=== PATIENT | female | born 1960 | race Caucasian/White ===

== ENCOUNTER 2016-07-28 09:45 | Day surgery (SDC) | payer MEDICARE, BC ==
[2016-07-22 12:44] LABS: BASOPHILS ABSOLUTE 0.08 10/3/uL (0.0-0.16); EOSINOPHILS ABSOLUTE 0.24 10/3/uL (0.0-0.53); HEMATOCRIT 40.5 % (36.0-48.0); HEMOGLOBIN 13.4 g/dL (12.0-16.0); IMMATURE GRANULOCYTES 0.4 %; IMMATURE GRANULOCYTES ABSOLUTE 0.03 10/3/uL (0.0-0.11); LYMPHOCYTES 34.7 %; MEAN CORPUS HGB CONC 33.1 g/dL (32.0-36.0); MEAN CORPUSCULAR VOLUME 93.8 fL (80-100); MONOCYTES 6.4 %; MONOCYTES ABSOLUTE 0.52 10/3/uL (0.21-1.20); NEUTROPHILS 54.5 %; NEUTROPHILS ABSOLUTE 4.41 10/3/uL (2.02-8.40); PLATELET COUNT 331 10/3/uL (150-400); RBC DISTRIBUTION WIDTH 13.6 % (12.0-16.0); RED CELL COUNT 4.32 10/6/uL (4.0-5.6); WHITE BLOOD CELLS 8.1 10/3/uL (4.5-10.5)
[2016-07-22 12:47] LABS: MANUAL DIFF NO %
[2016-07-22 13:13] LABS: A/G RATIO 1.2 (0.7-1.9); ALBUMIN 3.5 G/DL (3.5-5.0); ALKALINE PHOSPHATASE 96 U/L (45-117); BUN (BLOOD UREA NITROGEN) 13 MG/DL (6-23); CALCIUM, SERUM 8.6 MG/DL (8.5-10.4); CHLORIDE, SERUM 105 MMOL/L (96-112); CO2 (CARBON DIOXIDE) 27 MMOL/L (24-34); CREATININE 0.49 MG/DL (0.55-1.02); GFR AFRICAN AMERICAN 128 ML/MIN (>=60); GFR NON AFRICAN AMERICAN 110 ML/MIN (>=60); GLUCOSE, SERUM 119 MG/DL (60-99); POTASSIUM, SERUM 3.9 MMOL/L (3.5-5.3); SGOT(AST) 13 U/L (5-40); SGPT(ALT) 17 U/L (5-65); SODIUM, SERUM 141 MMOL/L (135-148); TOTAL BILIRUBIN 0.2 MG/DL (0-1.2); TOTAL PROTEIN 6.5 G/DL (6.0-8.5)
--- NOTE | ~2016-07-28 | OP ---
Record Of Operation [facility] [address] [place]. [address] NAME: TEE HERNÁNDEZ : 64 STATUS : REG [facility] PAT#: [id number] AGE: 56 ADM/REG DATE : 07/28/16 MR#: [id number] REPORT SERV DATE: 07/28/16 DICTATED BY: TERRY YOON III DATE: 07/28/16 REPORT STATUS : Draft TRANSCRIBED BY: MODL DATE: 07/28/16 DATE OF PROCEDURE: 07/28/2016 PREOPERATIVE DIAGNOSES: Symptomatic cholelithiasis, chronic cholecystitis, and chronically incarcerated umbilical hernia. POSTOPERATIVE DIAGNOSES: Symptomatic cholelithiasis, chronic cholecystitis, and chronically incarcerated umbilical hernia. PROCEDURE: Laparoscopic cholecystectomy with repair of chronic incarcerated umbilical hernia. SURGEON: Terry Yoon M.D. ANESTHESIA: General with intubation. COMPLICATIONS: None. ESTIMATED BLOOD LOSS: Less than 30 mL. SPECIMENS: Gallbladder. DRAINS: None. LAP AND SPONGE COUNT: Correct x3. BRIEF HISTORY: This 56-year-old female presented with evidence for symptomatic cholelithiasis and cholecystitis associated with a symptomatic chronically incarcerated umbilical hernia. It was felt that laparoscopic cholecystectomy, possible laparotomy, with repair of the umbilical hernia was indicated. These procedures, the risks, benefits, and alternatives, including not limited to the risk for bleeding, infection, common bile duct injury, bile leak, retained common bile duct stone, enterotomy, or injury to any abdominal structure, the definite possible need for laparotomy, the possible persistence of her symptoms unrelieved by surgery, possibility of postoperative diarrhea or incisional hernia, possible need for laparotomy, possible recurrence of her umbilical hernia and unforeseen complications including deep venous thrombosis, pulmonary embolus, myocardial infarction, stroke, pneumonia, and , were fully and completely explained to the patient and her family at length prior to surgery. The fact that this was a major operation with risk for major morbidity mortality, no guarantee with relief of her symptoms were explained to them. The expected length of recovery of both open and laparoscopic procedures was explained. The patient and family had questions, which were answered. They fully understood the risks and agreed to surgery as planned. DESCRIPTION OF PROCEDURE: After being properly identified and after discussing risks of surgery with the patient and her family again in the preoperative area, the patient was taken to the operating room and placed in the supine position on the operating room table. Record Of Operation [facility] [address] [place]. [address] NAME: TEE HERNÁNDEZ : 64 STATUS : REG [facility] PAT#: [id number] AGE: 56 ADM/REG DATE : 07/28/16 MR#: [id number] REPORT SERV DATE: 07/28/16 DICTATED BY: TERRY YOON III DATE: 07/28/16 REPORT STATUS : Draft TRANSCRIBED BY: HONEY DATE: 07/28/16 General anesthesia was administered. She was intubated without difficulty. The abdomen was prepped and draped sterilely in the usual fashion. After an appropriate "time-out" per [facility] standards, a small transverse incision was made just below the umbilicus. The skin and fascia on either side of this were elevated with towel clips. A Veress needle was placed through the incision into the peritoneal cavity. Correct position of the needle in peritoneal cavity was confirmed by the hanging drop test. The abdominal cavity was then insufflated to about 13 mmHg with carbon dioxide. Correct position of the air in the peritoneal cavity was confirmed by palpation. The Veress needle was removed and replaced with a 10 mm trocar. The laparoscope was placed through this. The patient was placed in the reverse Trendelenburg position and to her left. A second 10 mm trocar was placed just below the xiphoid process, to the right of falciform ligament, under direct vision with the laparoscope. Two 5 mm trocars were placed along the right subcostal margin, one in the midaxillary line and the other in the midclavicular line. These were also placed under direct vision with the laparoscope. Two 5 mm trocars were placed along the right subcostal margin, one in the midclavicular line and the other in the mid axillary line, under direct vision with the laparoscope. The upper abdomen was inspected. The gallbladder appeared to be chronically diseased. The gallbladder rivera were thickened, inflamed, and there were adhesions between the gallbladder and omentum consistent with cholecystitis. The liver slightly enlarged consistent with fatty infiltration, but no discreet lesions were seen. The remainder of the upper abdomen was otherwise unremarkable as far as we could determine through the laparoscope. The appropriate instruments were placed through the trocars. Using sharp dissection, the adhesions between the gallbladder and omentum were carefully divided. The gallbladder was then grasped and the infundibulum of the gallbladder was retracted laterally and inferiorly. Using sharp dissection, the cystic duct was carefully and meticulously defined proximally and distally. The fibrous and fatty tissue between these structures was divided so as to clearly identify the triangle of [place]ot and critical view of safety. The lower portion of the gallbladder dissected away from the liver plates so as to clearly identify the critical angle. Once these structures were clearly defined, the cystic duct was clipped with two clips, one on the common bile duct side and one on the gallbladder side, all placed as close to the gallbladder as possible, taking care not encroach upon or injure the common bile duct in any way. The cystic duct was then divided between these clips as close to the gallbladder as possible. We elected not to perform a cholangiogram because there was no preoperative or intraoperative evidence for biliary dilatation because the patient's preoperative liver enzymes were normal and because her biliary anatomy was clearly defined. The cystic artery was then similarly clipped and divided as close to the gallbladder as possible. Using the spatula and the cautery, gallbladder was carefully dissected from the liver bed. This went very well. Before the gallbladder was completely removed, the gallbladder bed and portal areas were irrigated numerous times with saline, and the saline was aspirated dry. This process was repeated several times until hemostasis was meticulously and thoroughly assured in all areas. It was also assured that the clips in the portal area were in good position and that there was no extravasation of bile from any accessory bile duct. Once this was assured, gallbladder was completely dissected away from the liver and placed in an Endopouch. The liver bed was again elevated, irrigated, inspected for meticulous and thorough hemostasis and for absence of any biliary extravasation and to be certain that the clips were in good position. Once this was Record Of Operation [address] [place]. [address] NAME: TEE HERNÁNDEZ : 64 STATUS : REG [facility]#: [id number] AGE: 56 ADM/REG DATE : 07/28/16 MR#: [id number] REPORT SERV DATE: 07/28/16 DICTATED BY: TERRY YOON III DATE: 07/28/16 REPORT STATUS : Draft TRANSCRIBED BY: MODMontez DATE: 07/28/16 assured, the gallbladder and the Endopouch were brought out through the infraumbilical trocar site after placing the laparoscope through the subxiphoid trocar. The lateral two trocars were removed and these three lower trocar sites were inspected on the underside for hemostasis with the laparoscope. Once this was assured, subxiphoid trocar was removed under direct vision with the laparoscope to assure hemostasis. The air was removed from the peritoneal cavity. We then turned our attention to the umbilical hernia. This was a hernia, which had some omentum chronically incarcerated within it. Using sharp dissection, the navel was raised superiorly. The fascial defect was identified. The omentum was carefully reduced back into the abdominal cavity. Using sharp dissection, the skin and subcutaneous tissue around the defect anteriorly was fully mobilized. The underside of the defect was inspected to be certain that there was no bowel beneath this. Hemostasis was assured. The defect was about 1 cm in size. The fascial edges were then reapproximated with interrupted 0 Prolene sutures. The fascia came together nicely with no tension, and it was felt that mesh was not required. Hemostasis was assured. The subcutaneous tissue was closed with running 3-0 chromic suture, the skin was closed with running subcuticular 4-0 Monocryl stitch. The skin incisions were all closed with running subcuticular 4-0 Monocryl stitches. They were injected with 0.5% Marcaine. Dressings were applied. Anesthesia was reversed. The patient was taken to the recovery room in stable condition. She tolerated the procedure well. Her family was informed of results of surgery. The patient will be discharged when stable and comfortable and able to void and ambulate. Her family was advised that she should remain on liquid diet today and advance this as tolerated to a regular diet tomorrow, that she should keep wounds clean and dry for 48 hours, that she should not drive for at least three to four days after surgery or while using narcotics, and that she should resume her usual medications. They are advised she should not perform any heavy lifting for five to six weeks. She has been asked to return in two weeks for followup or sooner if any nausea, vomiting, fever, chills, wound drainage, abdominal pain, weakness, or other problems prior to that time. She was given a prescription for Percocet 7.5 one t.i.d., #12, as needed for pain, which she was advised not to use while driving. MINNA/HONEY Terry Yoon III, M.D. / [id number] CC: Aly Loyola III, M.D.
--- NOTE | ~2016-07-28 | PREOPHP ---
PreOp History and Physical [address] [place]. [address] NAME: TEE HERNÁNDEZ : 64 STATUS : [facility] PAT#: [id number] AGE: 56 ADM/REG DATE : 07/28/16 MR#: [id number] REPORT SERV DATE: 07/29/16 DICTATED BY: TERRY CAMARILLO III DATE: 07/19/16 REPORT STATUS : Draft TRANSCRIBED BY: HONEY DATE: 07/19/16 HISTORY OF PRESENT ILLNESS: This 56-year-old female comes to the operating room for laparoscopic cholecystectomy, possible laparotomy, for symptomatic cholelithiasis and cholecystitis. The patient complains of a six-month history of intermittent episodes of nausea, vomiting, and back pain, and upper abdominal pain. The patient has gallstones and felt to have symptomatic cholelithiasis and cholecystitis. She comes to the operating room now for laparoscopic cholecystectomy, possible laparotomy. PAST MEDICAL HISTORY: 1. Gastroesophageal reflux disease. 2. Hyperlipidemia. 3. Migraine headaches. 4. Arthritis. 5. Asthma. MEDICATIONS: Hyoscyamine; Prevacid; Phenergan; Carafate; albuterol; Aleve; vitamins; estradiol; Combivent; Maxalt; Skelaxin; and Treximet. ALLERGIES: IODINE AND MIGRANAL. PAST SURGICAL HISTORY: Includes hysterectomy, oophorectomy, laparotomy, appendectomy, and C- section. FAMILY HISTORY: Positive for diabetes, heart disease, and cancer. SOCIAL HISTORY: No history of tobacco or alcohol use. REVIEW OF SYSTEMS: The patient's 14-point review of systems was otherwise unremarkable except for back pain. PHYSICAL EXAMINATION: OBJECTIVE PHYSICAL EXAM: GENERAL: This is an obese female, in no acute distress. She is alert and oriented x3. VITAL SIGNS: Blood pressure 137/65, pulse 90, and temperature 98.2. HEENT: Unremarkable. NEUROLOGIC: Cranial nerves 2 through 12 are normal. LUNGS: Clear. CARDIAC: Normal. ABDOMEN: Soft with mild right upper quadrant tenderness with a small umbilical hernia. EXTREMITIES: Normal. LABORATORY DATA: Gallbladder ultrasound shows gallstones. HIDA scan shows nonvisualization of the gallbladder. PreOp History and Physical [address] [address] NAME: TEE HERNÁNDEZ : 64 STATUS : [facility]#: [id number] AGE: 56 ADM/REG DATE : 07/28/16 MR#: [id number] REPORT SERV DATE: 07/29/16 DICTATED BY: TERRY CAMARLILO III DATE: 07/19/16 REPORT STATUS : Draft TRANSCRIBED BY: HONEY DATE: 07/19/16 ASSESSMENT: 1. A 56-year-old female with symptomatic cholelithiasis and cholecystitis. 2. Obesity. 3. Hyperlipidemia. 4. Migraine headaches. 5. Asthma. 6. Arthritis. 7. Gastroesophageal reflux disease. PLAN: The patient comes to the operating room now for laparoscopic cholecystectomy, possible laparotomy. This procedure, the risks, benefits, and alternatives, including but not limited to the risk for bleeding, infection, common bile duct injury, bile leak, retained common bile stone, enterotomy, injury to any abdominal structure, the definite possible need for laparotomy, possible persistence of her symptoms unrelieved by surgery, possibility of postoperative diarrhea or incisional hernia, and unforeseen complications including deep venous thrombosis, pulmonary embolus, myocardial infarction, stroke, pneumonia, and , have been fully and completely explained to the patient at length prior to surgery. The fact that this is a major operation with risk for major morbidity and mortality with no guarantee with relief of her symptoms has been explained. The expected length of recovery with both open and laparoscopic procedure has been explained. The patient had questions which have been answered. She understands the risks and agrees to the surgery as planned. RHMelody/HONEY Terry Camarillo III, M.D. / [id number] CC: Aly Loyola III, M.D.
[~2016-07-28 09:45] MED LIST: ALEVE220 MG PO; Albuterol Sulfate INH; BENADRYL 50 MG50 MG PO; CENTRUM PO; CLARIT10 PO; COMBIVENT RESPIM4 GM INH; COMP10B PO; CRESTOR10 PO; DIHYDROERGOTAMINE PO; ENABLEX15 PO; ESTRADIOL2 MG PO; KEPPRA750 MG PO; MAXALT10 MG PO; MEP50TAB PO; MIRAPEX5 PO; PERCOCET1 TA5 PO; PR25 PO; PREV30 PO; REG PO; SKELAXIN8 PO; SOMATAB PO; SUCR PO; SYMAX-SL0.125 MG PO; TORATAB PO; TREXIMET PO; VICODINTAB PO
[2016-07-28 20:09] LABS: HEMATOCRIT 39.6 % (36.0-48.0); HEMOGLOBIN 12.8 g/dL (12.0-16.0)
[2016-09-08] MEDS ORDERED: CYMBALTA30 PO (11:50)
== END 2016-07-28 21:32 | disposition home or self-care (01) ==
LOC: SDC 09:45
PROVIDERS: Surgery
PROC: 0WQF0ZZ Repair Abdominal Wall, Open Approach (ICD-10-PCS; principal; 2016-07-28 12:15)
PROC: 0FT44ZZ Resection of Gallbladder, Percutaneous Endoscopic Approach (ICD-10-PCS; 2016-07-28 12:15)
DX: K80.10 Calculus of gallbladder with chronic cholecystitis without obstruction (principal); K42.0 Umbilical hernia with obstruction, without gangrene; K21.9 Gastro-esophageal reflux disease without esophagitis; E78.5 Hyperlipidemia, unspecified; G43.909 Migraine, unspecified, not intractable, without status migrainosus; J45.909 Unspecified asthma, uncomplicated; M06.9 Rheumatoid arthritis, unspecified; E66.01 Morbid (severe) obesity due to excess calories; Z88.5 Allergy status to narcotic agent; Z68.41 Body mass index [BMI] 40.0-44.9, adult; Z88.6 Allergy status to analgesic agent; Z90.710 Acquired absence of both cervix and uterus; Z90.49 Acquired absence of other specified parts of digestive tract; Z90.721 Acquired absence of ovaries, unilateral
CPT/HCPCS: 71020; 80053; 85014; 85018; 85025; 87641; 88304; 93005; A9270-GY; J1170; J2250; J2405; J2550; J2710; J3010; J3370

== ENCOUNTER 2016-09-15 08:37 | Day surgery (SDC) | payer MEDICARE, BC ==
[2016-09-09 14:52] LABS: BASOPHILS 0.7 %; BASOPHILS ABSOLUTE 0.06 10/3/uL (0.0-0.16); EOSINOPHILS 2.4 %; EOSINOPHILS ABSOLUTE 0.21 10/3/uL (0.0-0.53); HEMATOCRIT 38.8 % (36.0-48.0); HEMOGLOBIN 12.6 g/dL (12.0-16.0); IMMATURE GRANULOCYTES 0.2 %; IMMATURE GRANULOCYTES ABSOLUTE 0.02 10/3/uL (0.0-0.11); LYMPHOCYTES 32.6 %; LYMPHOCYTES ABSOLUTE 2.87 10/3/uL (0.67-4.30); MANUAL DIFF NO %; MEAN CORPUS HGB CONC 32.5 g/dL (32.0-36.0); MEAN CORPUSCULAR HEMOGLOB 30.7 pg (26.0-34.0); MEAN CORPUSCULAR VOLUME 94.6 fL (80-100); MEAN PLATELET VOLUME 10.4 fL (9.2-13.0); MONOCYTES 6.9 %; MONOCYTES ABSOLUTE 0.61 10/3/uL (0.21-1.20); NEUTROPHILS 57.2 %; NEUTROPHILS ABSOLUTE 5.04 10/3/uL (2.02-8.40); PLATELET COUNT 342 10/3/uL (150-400); RBC DISTRIBUTION WIDTH 13.3 % (12.0-16.0); WHITE BLOOD CELLS 8.8 10/3/uL (4.5-10.5)
[2016-09-09 15:08] LABS: A/G RATIO 1.2 (0.7-1.9); ALBUMIN 3.4 G/DL (3.5-5.0); ALKALINE PHOSPHATASE 93 U/L (45-117); CALCIUM, SERUM 8.8 MG/DL (8.5-10.4); CHLORIDE, SERUM 109 MMOL/L (96-112); CREATININE 0.56 MG/DL (0.55-1.02); GFR AFRICAN AMERICAN 123 ML/MIN (>=60); GFR NON AFRICAN AMERICAN 106 ML/MIN (>=60); GLOBULIN 2.9 G/DL (2.5-4.1); GLUCOSE, SERUM 110 MG/DL (60-99); POTASSIUM, SERUM 4.6 MMOL/L (3.5-5.3); SGOT(AST) 16 U/L (5-40); SGPT(ALT) 15 U/L (5-65); SODIUM, SERUM 143 MMOL/L (135-148); TOTAL BILIRUBIN 0.2 MG/DL (0-1.2); TOTAL PROTEIN 6.3 G/DL (6.0-8.5)
[2016-09-09 15:11] LABS: BUN (BLOOD UREA NITROGEN) 18 MG/DL (6-23); CO2 (CARBON DIOXIDE) 32 MMOL/L (24-34)
--- NOTE | ~2016-09-15 | OP ---
Record Of Operation [facility] [address] [place]. [address] NAME: TEE HERNÁNDEZ : 64 STATUS : [facility]#: [id number] AGE: 56 ADM/REG DATE : 09/15/16 MR#: [id number] REPORT SERV DATE: 09/15/16 DICTATED BY: TERRY YOON III DATE: 09/15/16 REPORT STATUS : Draft TRANSCRIBED BY: MODMontez DATE: 09/15/16 DATE OF PROCEDURE: 09/15/2016 PREOPERATIVE DIAGNOSIS: Enlarging symptomatic soft tissue neoplasm of the right flank. 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 PROCEDURE: Resection of soft tissue neoplasm from right flank. ANESTHESIA: General intubation. COMPLICATIONS: None. ESTIMATED BLOOD LOSS: Less than 5 mL. SPECIMENS: Mass from right flank. DRAINS: None. LAP AND SPONGE COUNT: Correct x3. BRIEF HISTORY: This 56-year-old female presented with enlarging symptomatic soft tissue neoplasm over the right lateral flank and it is felt that resection of this was indicated. This procedure, the risks, benefits and alternatives, including, not limited to the risk for bleeding, infection, pain, swelling, scarring, deformity to the area, seroma formation, hematoma formation, nerve injury, chronic paresthesias, pain, numbness, neuralgia or neuroma, and unforeseen complications including deep venous thrombosis, pulmonary embolus, myocardial infarction, stroke, pneumonia, and , were explained to the patient prior to surgery. Her questions were answered. She understood the risks and agreed to surgery as planned. DESCRIPTION OF PROCEDURE: After being appropriately identified and after discussing the risks of surgery with her again in the preoperative area, and after identifying and marking the tumor with a skin marker with her help in the preoperative area, the patient was taken to the operating room and placed in supine position on the operating room table. General anesthesia was administered. She was intubated without difficulty. She was then carefully rolled into the lateral position. Appropriate pads were placed beneath her chest and extremities. The right flank area was prepped and draped sterilely in the usual fashion. After an appropriate "time-out" per [employer] standards, a transverse incision made directly over the mass. The incision was continued through the subcutaneous tissue. A well-defined, well- encapsulated mass was identified, which was some 4-5 cm in length. The mass was completely resected from the subcutaneous tissue. The dissection continued down to the fascia. At no point were any neurovascular structures encountered or injured. Hemostasis was assured. The subcutaneous tissue was closed with a running 3-0 chromic suture. The skin was closed Record Of Operation [facility] [id number] [place]. [address] NAME: TEE HERNÁNDEZ : 64 STATUS : [facility]#: [id number] AGE: 56 ADM/REG DATE : 09/15/16 MR#: [id number] REPORT SERV DATE: 09/15/16 DICTATED BY: TERRY YOON III DATE: 09/15/16 REPORT STATUS : Draft TRANSCRIBED BY: HONEY DATE: 09/15/16 with running subcuticular 4-0 Monocryl stitch. The incision was injected with 0.5% Marcaine, dressings were applied, anesthesia was reversed and the patient was taken to recovery in stable condition. She tolerated the procedure well. Her family was informed the results of surgery. The patient was discharged when stable and comfortable. Her family was advised that she should keep wound clean and dry for 48 hours, that she should not drive for two to three days after surgery or while using narcotics, and that she should resume her usual medications. She was asked to return in two weeks for followup or sooner if any fever, chills, wound drainage, or other problems prior that time. She was given a prescription for Percocet 7.5 one t.i.d., #12, as needed for pain, which she was advised not to use while driving. MINNA/HONEY Terry Yoon III, M.D. / [id number] CC: Aly Loyola III, M.D.
--- NOTE | ~2016-09-15 | PREOPHP ---
PreOp History and Physical [address] [address] NAME: TEE HERNÁNDEZ : 64 STATUS : [facility]#: [id number] AGE: 56 ADM/REG DATE : 09/15/16 MR#: [id number] REPORT SERV DATE: 09/15/16 DICTATED BY: TERRY CAMARILLO III DATE: 08/14/16 REPORT STATUS : Draft TRANSCRIBED BY: MODMontez DATE: 08/14/16 HISTORY OF PRESENT ILLNESS: This 56-year-old female comes to the operating room for resection of a right flank mass. The complains right flank mass, which has been present for some time. The mass is increased slightly in size over the last six to seven years. The patient comes now for resection of this right flank mass, for both diagnostic and therapeutic reasons. The patient is status post recent laparoscopic cholecystectomy. PAST MEDICAL HISTORY: 1. Gastroesophageal reflux disease. 2. Hyperlipidemia. 3. Migraine headaches. 4. Asthma. 5. Arthritis. PAST SURGICAL HISTORY: Includes laparoscopic cholecystectomy, hysterectomy, laparotomy, knee surgery, appendectomy, and section. FAMILY HISTORY: Positive for heart disease, diabetes, and cancer. SOCIAL HISTORY: No tobacco or alcohol use. ALLERGIES: IODINE AND MIGRANAL. REVIEW OF SYSTEMS: The patient complains of wheezing and asthma, history of kidney stones and back pain. PHYSICAL EXAMINATION: GENERAL: An obese female, in no acute distress. She is alert and oriented x3. VITAL SIGNS: Blood pressure 125/81, pulse 114, temp 97.8. HEENT: Unremarkable. NEUROLOGIC: Cranial nerves 2 through 12 are normal. LUNGS: Clear. CARDIAC: Normal. ABDOMEN: At the right flank, the patient has a 5-cm mass, which is soft, discrete, mobile, and nontender. ASSESSMENT: 56-year-old female with: 1. Symptomatic enlarging right flank soft tissue mass. 2. Gastroesophageal reflux disease. 3. Hyperlipidemia. 4. Asthma. 5. Arthritis. 6. Migraine headaches. 7. Obesity. PreOp History and Physical [address] [address] NAME: TEE HERNÁNDEZ : 64 STATUS : [facility] PAT#: [id number] AGE: 56 ADM/REG DATE : 09/15/16 MR#: [id number] REPORT SERV DATE: 09/15/16 DICTATED BY: TERRY CAMARILLO III DATE: 08/14/16 REPORT STATUS : Draft TRANSCRIBED BY: HONEY DATE: 08/14/16 PLAN: The patient comes to the operating room now for resection of this right flank soft tissue mass. This procedure, the risks, benefits, and alternatives, including not limited to the risk for bleeding, infection, pain, swelling, scarring, deformity to the area, seroma formation, hematoma formation, nerve injury with chronic paresthesias, pain, numbness, neuralgia or neuroma, and unforeseen complications including deep venous thrombosis, pulmonary embolus, myocardial infarction, stroke, pneumonia, and , have been explained to the patient. Her questions were answered. She understands the risks and agrees to surgery as planned. RHMelody/HONEY Terry Camarillo III, M.D. / [id number]
[~2016-09-15 08:37] MED LIST changes: +CYMBALTA30 PO
== END 2016-09-15 13:55 | disposition home or self-care (01) ==
LOC: SDC 08:37
PROVIDERS: Surgery
PROC: 0WBF0ZX Excision of Abdominal Wall, Open Approach, Diagnostic (ICD-10-PCS; principal; 2016-09-15 10:00)
DX: D17.1 Benign lipomatous neoplasm of skin and subcutaneous tissue of trunk (principal); E78.5 Hyperlipidemia, unspecified; G43.909 Migraine, unspecified, not intractable, without status migrainosus; J45.909 Unspecified asthma, uncomplicated; E66.01 Morbid (severe) obesity due to excess calories; M19.90 Unspecified osteoarthritis, unspecified site; K21.9 Gastro-esophageal reflux disease without esophagitis; Z90.49 Acquired absence of other specified parts of digestive tract; Z68.41 Body mass index [BMI] 40.0-44.9, adult; Z90.710 Acquired absence of both cervix and uterus; Z86.718 Personal history of other venous thrombosis and embolism; Z98.890 Other specified postprocedural states; Z88.5 Allergy status to narcotic agent; Z88.8 Allergy status to other drugs, medicaments and biological substances
CPT/HCPCS: 71020; 80053; 85025; 88304; 88307; 93005; A9270-GY; J0690; J2250; J2405; J2710; J3010